=== PATIENT | female | born 1985 | race Two or more races ===

== ENCOUNTER 2019-04-03 10:24 | Emergency (ER) | payer OTHER ==
[~2019-04-03] VITALS: Ht 165.1 cm; Wt 61.2 kg
[2019-04-03] MEDS ORDERED: KETOROLAC TROMETH 60MG/2ML VIAL IM ONE (13:45)
[2019-04-03 14:50] VITALS: BP 128/80
== END 2019-04-03 15:03 | disposition home or self-care (01) ==
LOC: ER 10:29
DX: M54.2 Cervicalgia (principal); M62.838 Other muscle spasm; V43.52XA Car driver injured in collision with other type car in traffic accident, initial encounter; Y93.89 Activity, other specified; Y92.488 Other paved roadways as the place of occurrence of the external cause; Y99.8 Other external cause status
CPT/HCPCS: 72125; 96372; 99284; J1885